=== PATIENT | female | born 1940 | race Caucasian/White ===

== ENCOUNTER 2024-02-12 14:05 | Inpatient (IN) | payer OTHER ==
[~2024-02-12] VITALS: Ht 147.3 cm; Wt 41.7 kg
[2024-02-12 14:05] VITALS: BP_SYST 81; PULSE 62; RESP 19; TEMP 97.2; O2SAT 98
[2024-02-12] MEDS: NACL 0.9% 2,000 ML IV ONE (14:58)
[2024-02-12 15:32] LABS: BASOPHILS # (AUTO) 0.1 K/uL (0.0-0.2); BASOPHILS % (AUTO) 0.7 % (0.0-2.0); EOSINOPHILS # (AUTO) 0.4 K/uL (0.0-0.4); EOSINOPHILS % (AUTO) 5.3 % (0.0-4.0); HEMATOCRIT 30.3 % (36-48); HEMOGLOBIN 10.1 g/dL (12.0-16.0); LYMPHOCYTES # (AUTO) 1.4 K/uL (1.0-5.5); LYMPHOCYTES % (AUTO) 18.7 % (20.5-51.5); MEAN CORPUSCULAR HEMOGLOBIN 35 pg (27-31); MEAN CORPUSCULAR HGB CONC 33 % (32-36); MEAN CORPUSCULAR VOLUME 106 fL (79.0-98.0); MONOCYTES # (AUTO) 0.6 K/uL (0.0-1.0); MONOCYTES % (AUTO) 8.2 % (1.7-9.3); NEUTROPHILS # (AUTO) 4.9 K/uL (1.8-7.7); NEUTROPHILS % (AUTO) 67.1 % (40.0-70.0); PLATELET COUNT (AUTO) 217 K/uL (130-430); RED BLOOD CELL COUNT(AUTO) 2.87 MIL/uL (4.2-6.2); RED CELL DISTRIBUTION WIDTH 14.1 % (9.0-15.0); WHITE BLOOD COUNT (AUTO) 7.3 K/uL (4.8-10.8)
[2024-02-12 15:44] LABS: INR 0.9 (0.8-1.2); PROTHROMBIN TIME 10.2 SECS (9.5-12.5)
[2024-02-12 15:55] LABS: ALANINE AMINOTRANSFERASE 19 U/L (12-78); ALBUMIN 2.4 g/dL (3.4-4.8); ANION GAP 16 (5-15); ASPARTATE AMINOTRANSFERASE 14 U/L (10-37); BILIRUBIN,DIRECT 0.1 mg/dL (0.0-0.3); CALCIUM 7.4 mg/dL (8.4-11.0); CARBON DIOXIDE 15 mmol/L (23-29); CHLORIDE 115 mmol/L (98-107); CREATINE KINASE, TOTAL 26 U/L (26-192); GLUCOSE 63 mg/dL (74-106); POTASSIUM 4.8 mmol/L (3.5-5.1); SODIUM SERUM 146 mmol/L (136-145); TOTAL BILIRUBIN 0.4 mg/dL (0.0-1.0); TOTAL PROTEIN, SERUM 5.3 g/dL (6.4-8.3)
[2024-02-12 16:06] LABS: CREATININE 12.49 mg/dL (0.55-1.30); UREA NITROGEN, BLOOD 108 mg/dL (8-21)
[2024-02-12] MEDS: PIPERACILLIN/TAZO 3.375 GM in NS 50 ML IV ONE (16:17)
[2024-02-12] MEDS ORDERED: PIPERACILLIN/TAZOBACTAM 3.375 GM/VIAL (ZOSYN) IV ONE (16:19)
[2024-02-12 16:20] LABS: INFLUENZA TYPE A Negative (NEGATIVE); INFLUENZA TYPE B NEGATIVE (NEGATIVE)
[2024-02-12 17:10] LABS: BILIRUBIN,URINE 1+ (NEGATIVE); COLOR,URINE YELLOW (YELLOW); GLUCOSE,URINE NEGATIVE (NEGATIVE); KETONES,URINE TRACE (NEGATIVE); LEUKOCYTE ESTERASE ,URINE NEGATIVE (NEGATIVE); NITRITE, URINE NEGATIVE (NEGATIVE); PH,URINE 5.5 (5.0-8.0); PROTEIN URINE 2+ (NEGATIVE); UROBILINOGEN,URINE 0.2 (0.2-1.0)
[2024-02-12 17:18] LABS: BLOOD, URINE TRACE (NEGATIVE); CLARITY/URINE HAZY (CLEAR)
[2024-02-12 17:24] LABS: BACTERIA,URINE FEW /HPF (None Seen); MUCUS,URINE None Seen /LPF (None Seen); RBC,URINE 0-3 /HPF (0-3); URINE AMORPHOUS URATE 2+ /HPF (None Seen)
[2024-02-12] MEDS: ALBUMIN HUMAN 25% 100 ML IV ONE (17:33)
[2024-02-12] MEDS: VANCOMYCIN HCL 1,000 MG in NS 250 ML IV ONE (17:33)
[2024-02-12] MEDS ORDERED: VANCOMYCIN HCL 1000 MG/VIAL IV ONE (17:35)
[2024-02-12] MEDS ORDERED: ACETAMINOPHEN 325 MG TABLET PO PRN ×2 (17:45→20:00)
[2024-02-12] MEDS ORDERED: HYDROcodone/ACETAMIN 5-325 MG TAB (NORCO/ VICODIN) PO PRN (17:45)
[2024-02-12] MEDS ORDERED: HYDROcodone/ACETAMIN 10-325 MG TAB PO PRN (17:45)
[2024-02-12 17:50] VITALS: BP_SYST 81; PULSE 62; O2SAT 98
[2024-02-12] MEDS ORDERED: AMLO-138 (18:24)
[2024-02-12] MEDS ORDERED: [UNRECOGNIZED DRUG - OTHER] (18:24)
[2024-02-12] MEDS ORDERED: OXAZ10CA3 PO (18:24)
[2024-02-12] MEDS ORDERED: MIRT-91 PO (18:24)
[2024-02-12] MEDS: D5NS 1,000 ML IV SCH (19:27)
[2024-02-12] MEDS: HEPARIN SODIUM,PORCINE 5,000 UNITS/ML VIAL SUBCUT SCH (21:00)
[2024-02-12] MEDS: MIRTAZAPINE 15 MG TABLET PO SCH (21:00)
[2024-02-12] MEDS ORDERED: NOREPINEPHRINE BITARTRATE 8 MG in NS 242 ML IV PRN (21:30)
[2024-02-12] MEDS ORDERED: NOREPINEPHRINE 4 MG/4 ML VIAL IV ONE ×2 (21:37→21:39)
[2024-02-12] MEDS: NOREPINEPHRINE BITARTRATE 8 MG in NS 242 ML IV PRN (21:50)
[2024-02-13] VITALS (16 sets, daily range): BP systolic 83–140; PULSE 69–97; RESP 14–34; TEMP 96.1–98.6; O2SAT 2–94
[2024-02-13] MEDS ORDERED: NOREPINEPHRINE 4 MG/4 ML VIAL IV ONE ×2 (02:19→06:35)
[2024-02-13 08:06] LABS: BASOPHILS % (AUTO) 0.3 % (0.0-2.0); EOSINOPHILS % (AUTO) 0.1 % (0.0-4.0); HEMATOCRIT 31.5 % (36-48); HEMOGLOBIN 10.1 g/dL (12.0-16.0); LYMPHOCYTES # (AUTO) 0.8 K/uL (1.0-5.5); LYMPHOCYTES % (AUTO) 5.1 % (20.5-51.5); MEAN CORPUSCULAR HEMOGLOBIN 34 pg (27-31); MEAN CORPUSCULAR HGB CONC 32 % (32-36); MEAN CORPUSCULAR VOLUME 107 fL (79.0-98.0); MONOCYTES # (AUTO) 0.9 K/uL (0.0-1.0); MONOCYTES % (AUTO) 6.1 % (1.7-9.3); NEUTROPHILS # (AUTO) 13.6 K/uL (1.8-7.7); NEUTROPHILS % (AUTO) 88.4 % (40.0-70.0); PLATELET COUNT (AUTO) 310 K/uL (130-430); RED BLOOD CELL COUNT(AUTO) 2.94 MIL/uL (4.2-6.2); RED CELL DISTRIBUTION WIDTH 15.3 % (9.0-15.0); WHITE BLOOD COUNT (AUTO) 15.4 K/uL (4.8-10.8)
[2024-02-13 08:12] LABS: ANION GAP 26 (5-15); CHLORIDE 117 mmol/L (98-107); GLUCOSE 221 mg/dL (74-106); SODIUM SERUM 151 mmol/L (136-145); UREA NITROGEN, BLOOD 82 mg/dL (8-21)
[2024-02-13 08:15] LABS: CARBON DIOXIDE 8 mmol/L (23-29)
[2024-02-13 08:16] LABS: CALCIUM 6.3 mg/dL (8.4-11.0); CREATININE 9.57 mg/dL (0.55-1.30)
[2024-02-13] MEDS ORDERED: INSULIN LISPRO SLIDING SCALE 100 UNITS/ML, 3 ML VIAL (humaLOG) SUBCUT PRN (09:45)
[2024-02-13] MEDS ORDERED: CALCIUM GLUCONATE 2 GM in NS 100 ML IV ONE (10:30)
[2024-02-13] MEDS ORDERED: PIPERACILLIN/TAZO 3.375 GM in NS 50 ML IV ONE (10:30)
[2024-02-13] MEDS ORDERED: VANCOMYCIN HCL 1 GM/NS PREMIX 250 ML IV ONE (10:30)
[2024-02-13] MEDS: NOREPINEPHRINE BITARTRATE 8 MG in D5W 242 ML IV PRN (10:59)
[2024-02-13 11:03] LABS: BLOOD GAS PH 7.184 (7.350-7.450); BLOOD GAS PO2 80.2 mmHg (83.0-108.0)
[2024-02-13 11:04] LABS: ABG O2 SAT% ESTIMATE 93.4 % (94.0-98.0); BLOOD GAS BASE EXCESS -20.4 mmol/L (-2.0-3.0); BLOOD GAS HCO3 5.9 mmol/L (21.0-28.0)
[2024-02-13] MEDS: CALCIUM GLUCONATE 1 GM in NS 100 ML IV ONE (11:12)
[2024-02-13] MEDS ORDERED: D5W 1,000 ML IV PRN (11:15)
[2024-02-13] MEDS: INSULIN LISPRO SLIDING SCALE 100 UNITS/ML, 3 ML VIAL (humaLOG) SUBCUT PRN (12:06)
[2024-02-13] MEDS: SODIUM BICARBONATE 8.4% JECT 50 MEQ/50 ML SYRINGE IVP ONE (12:08)
[2024-02-13] MEDS: ALBUMIN HUMAN 25% 200 ML IV ONE (12:19)
[2024-02-13 14:00] LABS: ABG O2 SAT% ESTIMATE 93.3 % (94.0-98.0); BLOOD GAS HCO3 9.5 mmol/L (21.0-28.0); BLOOD GAS PH 7.347 (7.350-7.450)
[2024-02-13] MEDS: PIPERACILLIN/TAZOBACTAM 2.25 GM in D5W 50 ML IV SCH (14:05)
[2024-02-13 14:10] LABS: BLOOD GAS PCO2 17.7 mmHg (32.0-45.0)
[2024-02-13 14:11] LABS: BLOOD GAS BASE EXCESS -14.5 mmol/L (-2.0-3.0); BLOOD GAS PO2 67.9 mmHg (83.0-108.0)
[2024-02-13] MEDS: SODIUM BICARBONATE 8.4% JECT 100 MEQ in D5W 1,000 ML IVP SCH (14:19)
[2024-02-13] MEDS: NOREPINEPHRINE 4 MG/4 ML VIAL IV ONE (14:41)
[2024-02-13] MEDS: NOREPINEPHRINE BITARTRATE 16 MG in D5W 234 ML IV PRN (14:41)
[2024-02-13 16:17] LABS: BLOOD GAS PH 7.348 (7.350-7.450)
[2024-02-13 16:29] LABS: BLOOD GAS BASE EXCESS -11.5 mmol/L (-2.0-3.0); BLOOD GAS HCO3 12.8 mmol/L (21.0-28.0); BLOOD GAS PCO2 23.8 mmHg (32.0-45.0); BLOOD GAS PO2 55.1 mmHg (83.0-108.0)
[2024-02-13] MEDS: NICOTINE 14 MG/24 HR PATCH.TD24 TD ONE (17:50)
[2024-02-13] MEDS: NICOTINE 7 MG/24 HR PATCH.TD24 TD ONE (18:21)
[2024-02-13] MEDS ORDERED: VASOPRESSIN 40 UNITS in NS 38 ML IV PRN (21:00)
[2024-02-13] MEDS: LORazepam 2 MG/ML VIAL IVP PRN (21:36)
[2024-02-13] MEDS: ALBUTEROL SULFATE 0.083% 2.5 MG/3 ML VIAL.NEB INH PRN (23:30)
[2024-02-14] VITALS (30 sets, daily range): BP systolic 104–135; PULSE 81–105; RESP 14–37; TEMP 96.8–97.9; O2SAT 84–93
[2024-02-14 06:55] LABS: ALBUMIN 3.1 g/dL (3.4-4.8); ANION GAP 16 (5-15); ASPARTATE AMINOTRANSFERASE 38 U/L (10-37); CARBON DIOXIDE 23 mmol/L (23-29); CHLORIDE 112 mmol/L (98-107); PHOSPHORUS 3.3 mg/dL (2.7-4.5); POTASSIUM 3.2 mmol/L (3.5-5.1); SODIUM SERUM 151 mmol/L (136-145); TOTAL BILIRUBIN 0.5 mg/dL (0.0-1.0); TOTAL PROTEIN, SERUM 5.3 g/dL (6.4-8.3)
[2024-02-14 07:53] LABS: ALANINE AMINOTRANSFERASE 39 U/L (12-78); GLUCOSE 321 mg/dL (74-106); UREA NITROGEN, BLOOD 75 mg/dL (8-21)
[2024-02-14 08:03] LABS: CALCIUM 6.1 mg/dL (8.4-11.0); CREATININE 8.21 mg/dL (0.55-1.30)
[2024-02-14 08:22] LABS: HEMOGLOBIN A1C 4.6 % (<5.7)
[2024-02-14] MEDS: ALBUMIN HUMAN 25% 50 ML IV SCH (08:57)
[2024-02-14] MEDS: NICOTINE 7 MG/24 HR PATCH.TD24 TD SCH (09:00)
[2024-02-14] MEDS ORDERED: NICOTINE 14 MG/24 HR PATCH.TD24 TD SCH (09:00)
[2024-02-14 09:28] LABS: HEMATOCRIT 27.1 % (36-48); HEMOGLOBIN 9.2 g/dL (12.0-16.0); RED BLOOD CELL COUNT(AUTO) 2.64 MIL/uL (4.2-6.2); WHITE BLOOD COUNT (AUTO) 10.2 K/uL (4.8-10.8)
[2024-02-14 09:29] LABS: BASOPHILS % (AUTO) 0.4 % (0.0-2.0); EOSINOPHILS # (AUTO) 0.2 K/uL (0.0-0.4); EOSINOPHILS % (AUTO) 2.1 % (0.0-4.0); LYMPHOCYTES # (AUTO) 1.1 K/uL (1.0-5.5); LYMPHOCYTES % (AUTO) 10.9 % (20.5-51.5); MEAN CORPUSCULAR HEMOGLOBIN 35 pg (27-31); MEAN CORPUSCULAR HGB CONC 34 % (32-36); MEAN CORPUSCULAR VOLUME 103 fL (79.0-98.0); MONOCYTES # (AUTO) 0.9 K/uL (0.0-1.0); MONOCYTES % (AUTO) 9.3 % (1.7-9.3); NEUTROPHILS # (AUTO) 7.9 K/uL (1.8-7.7); NEUTROPHILS % (AUTO) 77.3 % (40.0-70.0); PLATELET COUNT (AUTO) 207 K/uL (130-430); RED CELL DISTRIBUTION WIDTH 14.6 % (9.0-15.0)
[2024-02-14] MEDS: CALCIUM GLUC 1 GM/100ML-NACL 100 ML IV ONE (10:01)
[2024-02-14] MEDS: KCL 40 mEq in 100 mL (PREMIX) 100 ML IV ONE (10:03)
[2024-02-14] MEDS: IPRATROPIUM BROM 0.5 MG/2.5 ML VIAL.NEB (ATROVENT) INH PRN (11:13)
[2024-02-14] MEDS ORDERED: LORazepam 2 MG/ML VIAL IVP PRN (16:30)
[2024-02-14 20:13] LABS: BLOOD GAS PCO2 41.1 mmHg (32.0-45.0); BLOOD GAS PH 7.337 (7.350-7.450)
[2024-02-14 20:15] LABS: ABG O2 SAT% ESTIMATE 83.4 % (94.0-98.0); BLOOD GAS HCO3 21.5 mmol/L (21.0-28.0); BLOOD GAS PO2 50.3 mmHg (83.0-108.0)
[2024-02-14 20:16] LABS: ALLEN'S TEST POSITIVE (P); FRACTIONATED INSPIRED OXYGEN 0.35 % (0.21-100.00)
[2024-02-14] MEDS: ALBUTEROL SULFATE 0.083% 2.5 MG/3 ML VIAL.NEB INH SCH (20:29)
[2024-02-14] MEDS: IPRATROPIUM BROM 0.5 MG/2.5 ML VIAL.NEB (ATROVENT) INH SCH (20:30)
[2024-02-15] VITALS (46 sets, daily range): BP systolic 103–147; PULSE 85–110; RESP 16–35; TEMP 97.2–98.9; O2SAT 57–100
[2024-02-15] MEDS: HEPARIN SODIUM,PORCINE 5,000 UNITS/ML VIAL IV ONE (08:23)
[2024-02-15] MEDS: HEPARIN SODIUM,PORCINE 5,000 UNITS/ML VIAL ONE (08:23)
[2024-02-15 09:51] LABS: ANION GAP 15 (5-15); CARBON DIOXIDE 25 mmol/L (23-29); CHLORIDE 104 mmol/L (98-107); CREATININE 6.99 mg/dL (0.55-1.30); GLUCOSE 202 mg/dL (74-106); POTASSIUM 3.4 mmol/L (3.5-5.1); SODIUM SERUM 144 mmol/L (136-145); UREA NITROGEN, BLOOD 59 mg/dL (8-21)
[2024-02-15 09:53] LABS: CALCIUM 6.5 mg/dL (8.4-11.0)
[2024-02-15 09:59] LABS: BASOPHILS # (AUTO) 0.1 K/uL (0.0-0.2); BASOPHILS % (AUTO) 0.7 % (0.0-2.0); EOSINOPHILS % (AUTO) 0.3 % (0.0-4.0); HEMATOCRIT 25.3 % (36-48); HEMOGLOBIN 8.7 g/dL (12.0-16.0); LYMPHOCYTES # (AUTO) 0.8 K/uL (1.0-5.5); LYMPHOCYTES % (AUTO) 7.4 % (20.5-51.5); MEAN CORPUSCULAR HEMOGLOBIN 35 pg (27-31); MEAN CORPUSCULAR HGB CONC 35 % (32-36); MEAN CORPUSCULAR VOLUME 101 fL (79.0-98.0); MONOCYTES # (AUTO) 0.8 K/uL (0.0-1.0); MONOCYTES % (AUTO) 7.6 % (1.7-9.3); NEUTROPHILS # (AUTO) 8.8 K/uL (1.8-7.7); PLATELET COUNT (AUTO) 158 K/uL (130-430); RED BLOOD CELL COUNT(AUTO) 2.49 MIL/uL (4.2-6.2); RED CELL DISTRIBUTION WIDTH 14.3 % (9.0-15.0); WHITE BLOOD COUNT (AUTO) 10.4 K/uL (4.8-10.8)
[2024-02-15 10:09] LABS: BLOOD GAS BASE EXCESS 2.1 mmol/L (-2.0-3.0); BLOOD GAS HCO3 25.9 mmol/L (21.0-28.0); BLOOD GAS PCO2 36.8 mmHg (32.0-45.0); BLOOD GAS PH 7.465 (7.350-7.450)
[2024-02-15 10:17] LABS: BLOOD GAS PO2 46.6 mmHg (83.0-108.0)
[2024-02-15 10:18] LABS: ABG O2 SAT% ESTIMATE 85.3 % (94.0-98.0); ALLEN'S TEST POSITIVE (P)
[2024-02-16] VITALS (53 sets, daily range): BP systolic 66–145; PULSE 80–108; RESP 16–40; TEMP 96.5–97.9; O2SAT 91–100
[2024-02-16 06:40] LABS: BASOPHILS % (AUTO) 0.4 % (0.0-2.0); EOSINOPHILS # (AUTO) 0.2 K/uL (0.0-0.4); EOSINOPHILS % (AUTO) 3.2 % (0.0-4.0); HEMATOCRIT 24.4 % (36-48); HEMOGLOBIN 8.5 g/dL (12.0-16.0); LYMPHOCYTES # (AUTO) 0.8 K/uL (1.0-5.5); LYMPHOCYTES % (AUTO) 10.4 % (20.5-51.5); MEAN CORPUSCULAR HEMOGLOBIN 35 pg (27-31); MEAN CORPUSCULAR HGB CONC 35 % (32-36); MEAN CORPUSCULAR VOLUME 100 fL (79.0-98.0); MONOCYTES # (AUTO) 0.5 K/uL (0.0-1.0); MONOCYTES % (AUTO) 7.3 % (1.7-9.3); NEUTROPHILS # (AUTO) 5.8 K/uL (1.8-7.7); NEUTROPHILS % (AUTO) 78.7 % (40.0-70.0); PLATELET COUNT (AUTO) 112 K/uL (130-430); RED BLOOD CELL COUNT(AUTO) 2.44 MIL/uL (4.2-6.2); WHITE BLOOD COUNT (AUTO) 7.4 K/uL (4.8-10.8)
[2024-02-16 06:49] LABS: ALANINE AMINOTRANSFERASE 21 U/L (12-78); ALBUMIN 2.4 g/dL (3.4-4.8); ANION GAP 11 (5-15); CARBON DIOXIDE 33 mmol/L (23-29); CHLORIDE 101 mmol/L (98-107); CREATININE 3.37 mg/dL (0.55-1.30); GLUCOSE 150 mg/dL (74-106); SODIUM SERUM 145 mmol/L (136-145); TOTAL BILIRUBIN 0.9 mg/dL (0.0-1.0); TOTAL PROTEIN, SERUM 4.5 g/dL (6.4-8.3); UREA NITROGEN, BLOOD 25 mg/dL (8-21)
[2024-02-16 07:18] LABS: ABG O2 SAT% ESTIMATE 96.7 % (94.0-98.0); BLOOD GAS BASE EXCESS 7.9 mmol/L (-2.0-3.0); BLOOD GAS HCO3 30.8 mmol/L (21.0-28.0); BLOOD GAS PCO2 36.2 mmHg (32.0-45.0); BLOOD GAS PH 7.548 (7.350-7.450); BLOOD GAS PO2 76.6 mmHg (83.0-108.0)
[2024-02-16 07:40] LABS: ALLEN'S TEST POSITIVE (P)
[2024-02-16 08:17] LABS: POTASSIUM 2.8 mmol/L (3.5-5.1)
[2024-02-16 08:18] LABS: CALCIUM 6.3 mg/dL (8.4-11.0)
[2024-02-16 08:19] LABS: ASPARTATE AMINOTRANSFERASE 17 U/L (10-37)
[2024-02-16] MEDS: KCL 40 mEq in 100 mL (PREMIX) 100 ML IV ONE (09:22)
[2024-02-16] MEDS: NICOTINE 21 MG/24 HR PATCH.TD24 TD ONE (11:45)
[2024-02-16] MEDS: KCL 20 mEq in D5W 1000 mL 1,000 ML IV SCH (13:26)
[2024-02-16] MEDS: CALCIUM GLUCONATE 1 GM/10 ML VIAL ONE (23:03)
[2024-02-16] MEDS: CALCIUM GLUCONATE 1 GM in NS 100 ML IV ONE (23:44)
[2024-02-17] VITALS (37 sets, daily range): BP systolic 92–135; PULSE 72–85; RESP 19–35; TEMP 96.4–99.1; O2SAT 96–100
[2024-02-17] MEDS: KCL 20 mEq in 100 mL (PREMIX) 100 ML IV ONE (01:43)
[2024-02-17 05:13] LABS: HEPATITIS A AB, IgM Negative (Negative); HEPATITIS B CORE AB, TOTAL Negative (Negative); HEPATITIS B SURFACE AG Negative (Negative); HEPATITIS C VIRUS AB Non Reactive (Non Reactive)
[2024-02-17 05:57] LABS: BASOPHILS % (AUTO) 0.3 % (0.0-2.0); EOSINOPHILS # (AUTO) 0.3 K/uL (0.0-0.4); EOSINOPHILS % (AUTO) 3.6 % (0.0-4.0); HEMATOCRIT 24.6 % (36-48); HEMOGLOBIN 8.3 g/dL (12.0-16.0); LYMPHOCYTES # (AUTO) 1.2 K/uL (1.0-5.5); LYMPHOCYTES % (AUTO) 14.8 % (20.5-51.5); MEAN CORPUSCULAR HEMOGLOBIN 34 pg (27-31); MEAN CORPUSCULAR HGB CONC 34 % (32-36); MEAN CORPUSCULAR VOLUME 102 fL (79.0-98.0); MONOCYTES # (AUTO) 0.6 K/uL (0.0-1.0); NEUTROPHILS # (AUTO) 5.7 K/uL (1.8-7.7); NEUTROPHILS % (AUTO) 73.3 % (40.0-70.0); PLATELET COUNT (AUTO) 108 K/uL (130-430); RED BLOOD CELL COUNT(AUTO) 2.42 MIL/uL (4.2-6.2); RED CELL DISTRIBUTION WIDTH 13.9 % (9.0-15.0); WHITE BLOOD COUNT (AUTO) 7.8 K/uL (4.8-10.8)
[2024-02-17 06:05] LABS: ANION GAP 10 (5-15); CARBON DIOXIDE 31 mmol/L (23-29); CHLORIDE 104 mmol/L (98-107); CREATININE 3.26 mg/dL (0.55-1.30); GLUCOSE 106 mg/dL (74-106); POTASSIUM 3.6 mmol/L (3.5-5.1); SODIUM SERUM 145 mmol/L (136-145); UREA NITROGEN, BLOOD 27 mg/dL (8-21)
[2024-02-17 06:07] LABS: CALCIUM 6.3 mg/dL (8.4-11.0)
[2024-02-17] MEDS: NICOTINE 21 MG/24 HR PATCH.TD24 TD SCH (09:05)
[2024-02-17] MEDS: CALCIUM GLUC 1 GM/100ML-NACL 100 ML IV ONE (09:06)
[2024-02-17 10:07] LABS: ABG O2 SAT% ESTIMATE 94.5 % (94.0-98.0); ALLEN'S TEST POSITIVE (P); BLOOD GAS BASE EXCESS 3.3 mmol/L (-2.0-3.0); BLOOD GAS HCO3 25.8 mmol/L (21.0-28.0); BLOOD GAS PCO2 32.3 mmHg (32.0-45.0); BLOOD GAS PO2 63.8 mmHg (83.0-108.0)
[2024-02-17] MEDS: VANCOMYCIN HCL 750 MG in NS 250 ML IV ONE (14:29)
[2024-02-17 15:22] LABS: TOTAL IRON BIND. CAPACITY 56 ug/dL (250-450)
[2024-02-17] MEDS ORDERED: *TPN PER PHARMACY XX PRN (17:45)
[2024-02-18] VITALS (33 sets, daily range): BP systolic 109–149; PULSE 74–96; RESP 14–31; TEMP 96.1–98.1; O2SAT 91–99
[2024-02-18 06:28] LABS: BASOPHILS % (AUTO) 0.4 % (0.0-2.0); EOSINOPHILS # (AUTO) 0.3 K/uL (0.0-0.4); EOSINOPHILS % (AUTO) 2.9 % (0.0-4.0); HEMATOCRIT 25.2 % (36-48); HEMOGLOBIN 8.6 g/dL (12.0-16.0); LYMPHOCYTES % (AUTO) 10.7 % (20.5-51.5); MEAN CORPUSCULAR HEMOGLOBIN 35 pg (27-31); MEAN CORPUSCULAR HGB CONC 34 % (32-36); MEAN CORPUSCULAR VOLUME 101 fL (79.0-98.0); MONOCYTES % (AUTO) 10.2 % (1.7-9.3); NEUTROPHILS # (AUTO) 7.3 K/uL (1.8-7.7); NEUTROPHILS % (AUTO) 75.8 % (40.0-70.0); PLATELET COUNT (AUTO) 124 K/uL (130-430); RED BLOOD CELL COUNT(AUTO) 2.49 MIL/uL (4.2-6.2); RED CELL DISTRIBUTION WIDTH 13.7 % (9.0-15.0); WHITE BLOOD COUNT (AUTO) 9.6 K/uL (4.8-10.8)
[2024-02-18 07:07] LABS: QUANTIFERON TB GOLD Negative (Negative)
[2024-02-18 07:08] LABS: ALANINE AMINOTRANSFERASE 16 U/L (12-78); ALBUMIN 2.1 g/dL (3.4-4.8); ANION GAP 11 (5-15); ASPARTATE AMINOTRANSFERASE 17 U/L (10-37); CARBON DIOXIDE 28 mmol/L (23-29); CHLORIDE 101 mmol/L (98-107); CREATININE 3.08 mg/dL (0.55-1.30); GLUCOSE 106 mg/dL (74-106); POTASSIUM 3.2 mmol/L (3.5-5.1); SODIUM SERUM 140 mmol/L (136-145); TOTAL BILIRUBIN 0.7 mg/dL (0.0-1.0); TOTAL PROTEIN, SERUM 4.5 g/dL (6.4-8.3); UREA NITROGEN, BLOOD 26 mg/dL (8-21); VANCOMYCIN,RANDOM 17.8 ug/mL (20.0-30.0)
[2024-02-18 07:34] LABS: CALCIUM 6.5 mg/dL (8.4-11.0)
[2024-02-18 09:00] LABS: ABG O2 SAT% ESTIMATE 96.3 % (94.0-98.0); ALLEN'S TEST POSITIVE (P); BLOOD GAS HCO3 25.6 mmol/L (21.0-28.0); BLOOD GAS PCO2 31.3 mmHg (32.0-45.0); BLOOD GAS PO2 73.3 mmHg (83.0-108.0)
[2024-02-18] MEDS: MAGNESIUM SULFATE 50 ML IV ONE (15:20)
[2024-02-18] MEDS: CALCIUM GLUCONATE 2 GM in NS 100 ML IV ONE (15:20)
[2024-02-18] MEDS: FOLIC ACID 5 MG/ML VIAL IV ONE (16:30)
[2024-02-18] MEDS: CALCIUM GLUCONATE 1 GM/10 ML VIAL ONE (16:38)
[2024-02-18] MEDS ORDERED: INSULIN REGULAR, HUMAN 100 UNITS/ML, 3 ML VIAL (humuLIN R) SUBCUT PRN (21:00)
[2024-02-18] MEDS: TPN CENTRAL 0.0001 ML, SODIUM ACETATE 40 MEQ, POTASSIUM CHLORIDE 20 MEQ, K PHOS 9 MM, C... IV SCH (21:44)
[2024-02-19] VITALS (31 sets, daily range): BP systolic 109–158; PULSE 79–106; RESP 14–33; TEMP 96.5–99.1; O2SAT 94–100
[2024-02-19 06:21] LABS: BASOPHILS % (AUTO) 0.3 % (0.0-2.0); EOSINOPHILS # (AUTO) 0.1 K/uL (0.0-0.4); EOSINOPHILS % (AUTO) 1.6 % (0.0-4.0); HEMATOCRIT 22.5 % (36-48); HEMOGLOBIN 7.8 g/dL (12.0-16.0); LYMPHOCYTES # (AUTO) 0.5 K/uL (1.0-5.5); LYMPHOCYTES % (AUTO) 6.5 % (20.5-51.5); MEAN CORPUSCULAR HEMOGLOBIN 35 pg (27-31); MEAN CORPUSCULAR HGB CONC 35 % (32-36); MEAN CORPUSCULAR VOLUME 101 fL (79.0-98.0); MONOCYTES # (AUTO) 0.8 K/uL (0.0-1.0); MONOCYTES % (AUTO) 9.9 % (1.7-9.3); NEUTROPHILS # (AUTO) 6.6 K/uL (1.8-7.7); NEUTROPHILS % (AUTO) 81.7 % (40.0-70.0); PLATELET COUNT (AUTO) 145 K/uL (130-430); RED BLOOD CELL COUNT(AUTO) 2.23 MIL/uL (4.2-6.2); RED CELL DISTRIBUTION WIDTH 13.7 % (9.0-15.0); WHITE BLOOD COUNT (AUTO) 8.1 K/uL (4.8-10.8)
[2024-02-19 06:59] LABS: ANION GAP 10 (5-15); CALCIUM 7.1 mg/dL (8.4-11.0); CARBON DIOXIDE 27 mmol/L (23-29); CHLORIDE 101 mmol/L (98-107); CREATININE 2.78 mg/dL (0.55-1.30); GLUCOSE 168 mg/dL (74-106); SODIUM SERUM 138 mmol/L (136-145); UREA NITROGEN, BLOOD 22 mg/dL (8-21)
[2024-02-19 07:11] LABS: POTASSIUM 2.6 mmol/L (3.5-5.1)
[2024-02-19] MEDS: KCL 40 mEq in 100 mL (PREMIX) 100 ML IV ONE ×2 (07:59→13:13)
[2024-02-19] MEDS: ALBUTEROL SULFATE 0.083% 2.5 MG/3 ML VIAL.NEB INH ONE (09:19)
[2024-02-19] MEDS: HEPARIN SODIUM,PORCINE 5,000 UNITS/ML VIAL SUBCUT ONE (13:20)
[2024-02-19] MEDS ORDERED: PANTOPRAZOLE SODIUM 40 MG/VIAL (PROTONIX) IVP ONE (17:15)
[2024-02-19] MEDS ORDERED: RACEPINEPHRINE HCL 0.5 ML VIAL.NEB INH ONE (20:42)
[2024-02-19] MEDS: RACEPINEPHRINE HCL 0.5 ML VIAL.NEB INH ONE (20:47)
[2024-02-19] MEDS: HEPARIN SODIUM,PORCINE 5,000 UNITS/ML VIAL SUBCUT SCH (21:07)
[2024-02-19] MEDS: ONDANSETRON HCL 4 MG/2 ML VIAL IVP PRN (23:25)
[2024-02-20] VITALS (20 sets, daily range): BP systolic 105–140; PULSE 82–96; RESP 17–34; TEMP 97.2–99.4; O2SAT 92–98
[2024-02-20 06:30] LABS: ALANINE AMINOTRANSFERASE 16 U/L (12-78); ALBUMIN 2.1 g/dL (3.4-4.8); ANION GAP 8 (5-15); ASPARTATE AMINOTRANSFERASE 17 U/L (10-37); CALCIUM 7.2 mg/dL (8.4-11.0); CARBON DIOXIDE 27 mmol/L (23-29); CHLORIDE 104 mmol/L (98-107); CREATININE 2.42 mg/dL (0.55-1.30); GLUCOSE 129 mg/dL (74-106); PHOSPHORUS 1.2 mg/dL (2.7-4.5); POTASSIUM 4.4 mmol/L (3.5-5.1); SODIUM SERUM 139 mmol/L (136-145); TOTAL BILIRUBIN 0.3 mg/dL (0.0-1.0); TOTAL PROTEIN, SERUM 4.8 g/dL (6.4-8.3); TRIGLYCERIDES 132 mg/dL (30-150); UREA NITROGEN, BLOOD 20 mg/dL (8-21)
[2024-02-20 07:22] LABS: BASOPHILS % (AUTO) 0.3 % (0.0-2.0); EOSINOPHILS # (AUTO) 0.1 K/uL (0.0-0.4); EOSINOPHILS % (AUTO) 1.4 % (0.0-4.0); HEMATOCRIT 22.1 % (36-48); HEMOGLOBIN 7.5 g/dL (12.0-16.0); LYMPHOCYTES # (AUTO) 0.6 K/uL (1.0-5.5); LYMPHOCYTES % (AUTO) 6.6 % (20.5-51.5); MEAN CORPUSCULAR HEMOGLOBIN 35 pg (27-31); MEAN CORPUSCULAR HGB CONC 34 % (32-36); MEAN CORPUSCULAR VOLUME 103 fL (79.0-98.0); MONOCYTES # (AUTO) 1.5 K/uL (0.0-1.0); MONOCYTES % (AUTO) 15.7 % (1.7-9.3); NEUTROPHILS # (AUTO) 7.3 K/uL (1.8-7.7); PLATELET COUNT (AUTO) 182 K/uL (130-430); RED BLOOD CELL COUNT(AUTO) 2.15 MIL/uL (4.2-6.2); RED CELL DISTRIBUTION WIDTH 13.6 % (9.0-15.0); WHITE BLOOD COUNT (AUTO) 9.6 K/uL (4.8-10.8)
[2024-02-20] MEDS ORDERED: K PHOS 30 MM in NS 250 ML IV ONE (08:00)
[2024-02-20] MEDS: PANTOPRAZOLE SODIUM 40 MG/VIAL (PROTONIX) IVP SCH (10:23)
[2024-02-20] MEDS: NA PHOS 30 MM in NS 250 ML IV ONE (11:28)
== END 2024-02-20 17:25 | DRG 871 ==
LOC: SED 14:05 → STU 17:46 → SIC 21:48
PROVIDERS: ADMIT Internal Medicine; ATTEND Internal Medicine
PROC: 5A0935A Assistance with Respiratory Ventilation, Less than 24 Consecutive Hours, High Flow/Velocity Cannula (ICD-10-PCS; 2024-02-14)
PROC: 02HV33Z Insertion of Infusion Device into Superior Vena Cava, Percutaneous Approach (ICD-10-PCS; principal; 2024-02-15)
PROC: B548ZZA Ultrasonography of Superior Vena Cava, Guidance (ICD-10-PCS; 2024-02-15)
PROC: 5A1D70Z Performance of Urinary Filtration, Intermittent, Less than 6 Hours Per Day (ICD-10-PCS; 2024-02-15)
PROC: 5A0935A Assistance with Respiratory Ventilation, Less than 24 Consecutive Hours, High Flow/Velocity Cannula (ICD-10-PCS; 2024-02-15)
PROC: 5A09357 Assistance with Respiratory Ventilation, Less than 24 Consecutive Hours, Continuous Positive Airway Pressure (ICD-10-PCS; 2024-02-15)
PROC: 5A1D70Z Performance of Urinary Filtration, Intermittent, Less than 6 Hours Per Day (ICD-10-PCS; 2024-02-15)
PROC: 5A0935A Assistance with Respiratory Ventilation, Less than 24 Consecutive Hours, High Flow/Velocity Cannula (ICD-10-PCS; 2024-02-16)
PROC: 5A09457 Assistance with Respiratory Ventilation, 24-96 Consecutive Hours, Continuous Positive Airway Pressure (ICD-10-PCS; 2024-02-16)
PROC: 5A09357 Assistance with Respiratory Ventilation, Less than 24 Consecutive Hours, Continuous Positive Airway Pressure (ICD-10-PCS; 2024-02-18)
PROC: 5A09357 Assistance with Respiratory Ventilation, Less than 24 Consecutive Hours, Continuous Positive Airway Pressure (ICD-10-PCS; 2024-02-19)
PROC: 5A09357 Assistance with Respiratory Ventilation, Less than 24 Consecutive Hours, Continuous Positive Airway Pressure (ICD-10-PCS; 2024-02-20)
DX: A41.9 Sepsis, unspecified organism (principal); J96.01 Acute respiratory failure with hypoxia; R65.21 Severe sepsis with septic shock; R57.1 Hypovolemic shock; N17.0 Acute kidney failure with tubular necrosis; N39.0 Urinary tract infection, site not specified; E87.0 Hyperosmolality and hypernatremia; I12.9 Hypertensive chronic kidney disease with stage 1 through stage 4 chronic kidney disease, or unspecified chronic kidney disease; Z20.822 Contact with and (suspected) exposure to COVID-19; N18.9 Chronic kidney disease, unspecified; D53.9 Nutritional anemia, unspecified; I10 Essential (primary) hypertension; E87.6 Hypokalemia; E86.0 Dehydration; Z79.899 Other long term (current) drug therapy; Z88.8 Allergy status to other drugs, medicaments and biological substances
CPT/HCPCS: 36415; 36561; 36600; 71045; 76770; 76937; 80048; 80053; 80076; 80202; 81000; 81001; 81015; 82272; 82550; 82800-TC; 82803; 82948; 83037; 83540; 83550; 83605; 83735; 84100; 84478; 84484; 85025; 85610; 85730; 86480; 86704; 86706; 86709; 86803; 87040; 87081; 87086; 87340; 90935; 92610-GN; 93005; 93306; 94070; 94640; 94660; 94760; 96365; 97110-GP; 97530-GP; 99291; 99292; C1751; J0612; J1644; J1956; J2060; J2405; J2470; J2543; J3370; J3475; J3480; J3490; J7030; J7040; J7050; J7060; P9046